=== PATIENT | male | born 1975 | race Caucasian/White ===

== ENCOUNTER 2017-04-27 10:58 | Observation (INO) | payer BC ==
[~2017-04-27] VITALS: Ht 177.8 cm; Wt 78.3 kg
[~2017-04-27 10:58] MED LIST: AUGM875 PO; DILA100C PO; MEDICAL MARIJUANA; METH10TA PO; MMW SS; PRED20 PO; XANA1TAB6 PO
[2017-04-27] MEDS ORDERED: ceFAZolin 2 GM PREMIX 50 ML IV SCH (11:30)
[2017-04-27] MEDS ORDERED: LACTATED RINGER'S 1000 ML INJ 1,000 ML ONE (11:46)
[2017-04-27] MEDS: LACTATED RINGER'S 1000 ML IV PRN (11:50)
[2017-04-27] MEDS ORDERED: METOPROLOL TARTRATE 25 MG TAB PO PRN (12:00)
[2017-04-27] MEDS ORDERED: SODIUM CHLORID 0.9% 500 ML IV PRN (12:00)
[2017-04-27 12:16] LABS: HEMATOCRIT 43.1 % (39.0-51.0); HEMOGLOBIN 14.4 GM/DL (13.0-17.0); MEAN CELL VOLUME 86.6 FL (80.0-100.0); MEAN CORPUSCULAR HEMOGLOBIN 28.9 PG (27.0-34.0); MEAN CORPUSCULAR HGB CONC 33.3 % (32.0-36.0); MEAN PLATELET VOLUME 7.9 FL (7.0-11.0); PLATELET COUNT 186 TH/MM3 (150-450); RED BLOOD COUNT 4.97 MIL/MM3 (4.50-5.90); RED CELL DISTRIBUTION WIDTH 12.4 % (11.6-17.2); WHITE BLOOD COUNT 4.4 TH/MM3 (4.0-11.0)
[2017-04-27] MEDS ORDERED: FAMOTIDINE 20 MG/2 ML VIAL ONE (12:57)
[2017-04-27] MEDS ORDERED: MIDAZOLAM HCL 2 MG/2 ML VIAL ONE (12:57)
[2017-04-27 13:01] LABS: BILIRUBIN, URINE NEG (NEG); BLOOD, URINE NEG (NEG); GLUCOSE,URINE NEG (NEG); KETONE, URINE NEG (NEG); NITRITE,URINE NEG (NEG); PH, URINE 5.5 (5.0-8.5); URINE COLOR YELLOW (YELLW/STRAW); URINE LEUKOCYTE ESTERASE NEG (NEG)
[2017-04-27 13:05] LABS: RBC, URINE 0-2 /hpf (0-3); SQUAMOUS EPITHELIAL CELL URINE 0-5 /hpf (0-5); WBC, URINE 0-2 /hpf (0-5)
[2017-04-27] MEDS ORDERED: fentaNYL CITRATE 250 MCG/5 ML AMP ONE (13:14)
[2017-04-27] MEDS ORDERED: BUPIVACAINE/EPINEPHRINE 0.25% 50 ML VIAL ONE (13:41)
[2017-04-27 16:27] VITALS: PULSE 82
[2017-04-27] MEDS ORDERED: MORPHINE SULFATE 8 MG/ML INJ ONE (16:32)
[2017-04-27] MEDS ORDERED: HYDROmorphone HCL PF 2 MG/ML VIAL ONE (16:38)
[2017-04-27] MEDS ORDERED: MEPERIDINE HCL 25 MG/ML VIAL ONE ×3 (16:42→17:03)
--- NOTE | 2017-04-27 16:44 | RADRPT ---
EXAM DATE/TIME: 04/27/2017 04:56 [place] COMPARISON: No previous studies available for comparison. INDICATIONS : Evaluate for foreign body. Possible needle broke off during OR procedure. MEDICAL HISTORY : None. SURGICAL HISTORY : None. ENCOUNTER: Initial ACUITY: 1 day PAIN SCORE: Non-responsive. LOCATION: Left shoulder. FINDINGS: 2 spot intraoperative fluoroscopic views of the right shoulder are obtained. No obvious needle fragme nts overlying the visualized portions of the shoulder. CONCLUSION: No definite foreign bodies. Vimal Malone MD on April 27, 2017 at 16:42 Board Certified Radiologist. This report was verified electronically.
[2017-04-27] MEDS ORDERED: MORPHINE SULFATE 4 MG/ML INJ ONE ×2 (16:58→17:21)
--- NOTE | 2017-04-27 17:02 | MP ---
cc: Arsalan Collazo MD DATE OF OPERATION: 04/27/2017 PREOPERATIVE DIAGNOSIS: Left shoulder anterior subluxation/pain. POSTOPERATIVE DIAGNOSIS: Left should anterior subluxation/pain. PROCEDURE: Left shoulder Bankart procedure. SURGEON: Arsalan Collazo MD PROCEDURE IN DETAIL: After informed consent was obtained, patient was taken to the operating room, placed in a supine position on the operating table, she was administered general anesthesia by Dr. Savage of the anesthesia department. At that time, the left shoulder had a sterile U-drape applied. The shoulder was prepped with Betadine soap, followed by Betadine paint. Draping was commenced in standard fashion with sterile towels about the shoulder, split sheet. Ioban was utilized to seal off the edges of the field. A stockinette was applied to the hand and forearm. This was wrapped with a Coban. A time-out was held and confirmed. The patient had been given 1 gm of Ancef prior to the initiation of the operative procedure. At that time, a marking pen was utilized to map out the proposed skin incision. Incision was then made in the anterior axillary fold. Skin and subcutaneous tissues were divided. Bleeders were coagulated utilizing a Bovie. The deltopectoral interval was identified, the cephalic vein was exposed and retracted with the deltoid muscle. The clavipectoral fascia was incised, the muscle along the lateral border of the brachioradialis was identified at the conjoint tendon. It was retracted medially. This exposed the subscapularis. Utilizing sharp dissection, the subscapularis was taken down from the lesser tuberosity. The superior and inferior portions were tagged and this was allowed to retract medially. Attention was turned to the joint capsule. A T incision was made in the anterior capsule and inferior and superior flaps were developed. The excess labral tissue was removed. At that time using the Bankart instruments, there were 3 holes made through the anterior rim of the glenoid; 1 was at the 3 o'clock position, 1 at approximately the 11 o'clock position, and 1 at the 7 o'clock position. Two Ti-Cron sutures were passed through each hole. The inferior rim was brought up, superior rim was brought down, and this was securely anchored. At that time, closure of the incision in the anterior capsule was made. One of the small needle eyelets broke; however, the needle eyelet was identified on the floor and was intact otherwise. X-ray was obtained at that time, demonstrating no retained metallic pieces in the patient's shoulder joint. The subscapularis was tacked back down in its normal position. The deltopectoral interval was closed with 2-0 Vicryl over the cephalic vein. Subcutaneous tissue was closed with 3-0 Vicryl and the skin with 4-0 Nylon using an interrupted Allgower type stitch. Steri-Strips, 4 x 4's, ABD, and tape were applied to the patient's shoulder. He was placed in a sling. Patient tolerated the procedure well and was then taken to the recovery room in stable condition. At the completion of the procedure, sponge count, instrument count, needle counts were correct. Estimated blood loss was less than 50 mL. MD LAURA Ruelas/DANIAL , 04:23 PM , 05:00 PM BELIN[place]
[2017-04-27] MEDS ORDERED: PROMETHAZINE INJ 25 MG/ML VIAL IM PRN (18:00)
[2017-04-27 20:00] VITALS: BP 121/65; PULSE 60; RESP 20; TEMP 96.3; O2SAT 99
[2017-04-27] MEDS: CEPHALEXIN MONOHYDRATE 500 MG CAP PO SCH (20:22)
[2017-04-27] MEDS: MORPHINE SULFATE 8 MG/ML INJ IM PRN (22:19)
[2017-04-28] VITALS: BP 136/81; PULSE 73; RESP 20; TEMP 96.4; O2SAT 97
[2017-04-28] MEDS: METHADONE HCL 10 MG TAB PO PRN ×2 (01:50→08:08)
[2017-04-28] MEDS: MORPHINE SULFATE 8 MG/ML INJ IM PRN (04:23)
[2017-04-28] MEDS: CEPHALEXIN MONOHYDRATE 500 MG CAP PO SCH (08:08)
[2017-04-28 08:46] VITALS: BP 129/80; PULSE 70; RESP 15; TEMP 97.7; O2SAT 99
[2017-04-28] MEDS ORDERED: PHENYLEPH/NS 1000 MCG/10 ML SYR IV ONE (12:00)
[2017-04-28] MEDS ORDERED: LIDOCAINE HCL 1% PF 5 ML SYRINGE OTHER ONE (12:00)
[2017-04-28] MEDS ORDERED: DEXAMETHASONE SOD PHOS 4 MG/ML VIAL IV ONE (12:00)
[2017-04-28] MEDS ORDERED: ONDANSETRON HCL 4 MG/2 ML VIAL IV PUSH ONE (12:00)
[2017-04-28] MEDS ORDERED: PROPOFOL 200 MG/20 ML AMP IV ONE (12:00)
[2017-04-28 13:56] VITALS: BP 116/73; PULSE 64; RESP 15; TEMP 98.1; O2SAT 97
[2017-04-28] MEDS ORDERED: MORPHINE SULFATE 4 MG/ML INJ IV PUSH PRN (14:30)
[2017-04-28] MEDS ORDERED: MORPHINE SULFATE 8 MG/ML INJ IV PUSH PRN (14:30)
--- NOTE | 2017-04-28 16:35 | PD.CONS ---
HPI Service [facility] Consult Requested By Reason for Consult Pain management Primary Care Physician Arsalan Merritt M.D. Diagnoses: History of Present Illness Mr. Lawrence is a 41-year-old male. He had a left shoulder surgery today. At baseline he takes methadone, this is secondary to chronic pain from numerous fractures related to a past history of competitive fighting. Pain is not controlled on methadone alone at this point. IV morphine sulfate added as a when necessary pain treatment. This has helped. Review of Systems Constitutional: DENIES: Fatigue, Fever, Chills Eyes: DENIES: Blurred vision, Diplopia, Eye inflammation Ears, nose, mouth, throat: DENIES: Tinnitus, Hearing loss, Vertigo, Nasal discharge Respiratory: DENIES: Cough, Wheezing, Shortness of breath Cardiovascular: DENIES: Chest pain, Palpitations, Syncope Gastrointestinal: DENIES: Abdominal pain, Black stools, Bloody stools Musculoskeletal: COMPLAINS OF: Joint pain, Muscle aches, Stiffness, DENIES: Joint Swelling, Back pain, Neck pain Integumentary: DENIES: Abnormal pigmentation, Nail changes, Pruritus, Rash Hematologic/lymphatic: DENIES: Bruising, Lymphadenopathy Immunologic/allergic: DENIES: Eczema, Urticaria Neurologic: DENIES: Abnormal gait, Headache, Paresthesias Psychiatric: DENIES: Anxiety, Confusion, Hallucinations Past Family Social History Allergies: Coded Allergies: iodine (Verified Allergy, Unknown, 04/27/17) shellfish derived (Verified Allergy, Unknown, 04/27/17) Past Medical History Anxiety disorder History of seizures Past Surgical History History of hernia repair Reported Medications Reported Meds & Active Scripts Active Reported [Medical Marijuana] Unknown Dose Methadone (Methadone HCl) 10 Mg Tab 20 Mg PO DAILY Active Ordered Medications Administered Medications Medications (Trade) Dose Ordered Sig/Antia Route PRN Reason Start Time Stop Time Status Last Admin Dose Admin Cefazolin Sodium/ Dextrose 50 ml @ 100 mls/hr RISK REDUCTION COUNSELOR IV 04/27/17 11:30 04/30/17 11:29 04/27/17 11:50 Lactated Ringer's 1,000 ml @ 30 mls/hr Q24H PRN IV SEE LABEL COMMENTS 04/27/17 12:00 04/30/17 11:59 04/27/17 11:50 Methadone HCl (Dolophine) 10 mg Q6H PRN PO PAIN 1-10 IF TAKING P.O. 04/27/17 18:00 04/28/17 08:08 Cephalexin Monohydrate (Keflex) 500 mg BID PO 04/27/17 21:00 04/28/17 08:08 Family History Breast cancer in mother Lung cancer in father Social History Marijuana use Occasional alcohol use No smoking Physical Exam Vital Signs Vital Signs Date Time Temp Pulse Resp B/P (MAP) Pulse Ox O2 Delivery O2 Flow Rate FiO2 04/28/17 13:56 98.1 64 15 116/73 (87) 97 04/28/17 08:46 97.7 70 15 129/80 (96) 99 04/28/17 00:00 96.4 73 20 136/81 (99) 97 04/27/17 20:00 96.3 60 20 121/65 (83) 99 04/27/17 19:47 97.9 65 18 129/61 (83) 99 Room Air 04/27/17 17:43 65 20 113/67 (82) 99 Room Air 04/27/17 17:27 69 20 114/71 (85) 99 Room Air 04/27/17 17:13 78 20 107/58 (74) 98 Room Air 04/27/17 16:57 74 18 117/61 (79) 97 Room Air 04/27/17 16:43 86 18 138/68 (91) 100 Room Air Physical Exam GENERAL: NAD, A&Ox3 HEAD: Normocephalic. NECK: Supple, trachea midline. No lymphadenopathy. EYES: No scleral icterus. No injection or drainage. CARDIOVASCULAR: Regular rate and rhythm without murmurs, gallops, or rubs. RESPIRATORY: Breath sounds equal bilaterally. No accessory muscle use. GASTROINTESTINAL: Abdomen soft, non-tender, nondistended. MUSCULOSKELETAL: No cyanosis, or edema. Left shoulder and arm in sling. SKIN: Warm and dry. NEURO: No focal neurological deficitis. Result Diagram: 04/27/17 1156 Assessment and Plan Assessment and Plan 41-year-old male admitted for left shoulder surgery. Consult placed for pain management. Status post left shoulder surgery And IV morphine for breakthrough pain in hospital. Continue baseline methadone, or consider slight increase in methadone temporarily At discharge I would not recommend narcotics greater than 5 mg [place] every 6 hours if an additional treatment is needed Avoid tramadol NSAIDs might be a practical option to augment his pain Discharge planning Medically clear for discharge by HHLeonard Oreilly MD Apr 28, 2017 16:35
== END 2017-04-28 18:07 | disposition home or self-care (01) ==
LOC: PHSDC 10:58 → HSDI 17:57 → PH3B 19:33
PROVIDERS: ADMIT Orthopaedic Surgery; ATTEND Orthopaedic Surgery
DX: M24.412 Recurrent dislocation, left shoulder (principal); G89.29 Other chronic pain; F12.90 Cannabis use, unspecified, uncomplicated
CPT/HCPCS: 01630; 23455; 36415; 73020; 81001; 85027; 96372; G0378; J0690; J1170; J2175; J2250; J2270; J3010; J7120; J1100; J2370; J2405